=== PATIENT | male | born 1960 | race Asian ===

== ENCOUNTER 2017-03-19 17:24 | Emergency (ER) | payer OTHER ==
[~2017-03-19] VITALS: Ht 185.4 cm; Wt 96.2 kg
[~2017-03-19 17:24] MED LIST: FLUT0.05 NAS; INSU100I2 SC; LEVAQUIN750 MG PO; LISI5TAB10 PO; LORCET PLUS 7.51 TAB PO; NAPROSYN500 MG PO; SMZ/TMP DS1 TAB OR; TRAM50TA PO; TRAMADOL HCL100 MG PO
[2017-03-19 18:22] LABS: PLATELET COUNT 206 K/uL (142-355)
[2017-03-19 18:28] LABS: POTASSIUM 3.7 mmol/L (3.6-5.2); SODIUM 137 mmol/L (136-145)
[2017-03-19 19:15] VITALS: BP 138/79; TEMP 97.2
== END 2017-03-19 19:24 | disposition home or self-care (01) ==
LOC: ED 17:24
DX: R07.89 Other chest pain (principal); M79.602 Pain in left arm; M75.52 Bursitis of left shoulder; I45.19 Other right bundle-branch block
CPT/HCPCS: 36415; 80053; 82550; 84484; 85027; 93005; 96374; 99283; J1885

== ENCOUNTER 2018-05-12 08:33 | Emergency (ER) | payer OTHER ==
[~2018-05-12] VITALS: Ht 185.4 cm; Wt 99.8 kg
[2018-05-12 10:31] VITALS: BP 142/87; TEMP 98.1
== END 2018-05-12 10:40 | disposition home or self-care (01) ==
LOC: ED 08:33
PROC: 0H9QXZZ Drainage of Finger Nail, External Approach (ICD-10-PCS; principal; 2018-05-12)
DX: S60.151A Contusion of right little finger with damage to nail, initial encounter (principal); W23.0XXA Caught, crushed, jammed, or pinched between moving objects, initial encounter; Y92.89 Other specified places as the place of occurrence of the external cause
CPT/HCPCS: 99283; J1885

== ENCOUNTER 2018-08-23 16:50 | Emergency (ER) | payer OTHER ==
[~2018-08-23] VITALS: Ht 185.4 cm; Wt 102.1 kg
[2018-08-23 16:50] VITALS: TEMP 97.8
[2018-08-23 19:55] VITALS: BP 159/85
== END 2018-08-23 19:57 | disposition home or self-care (01) ==
LOC: ED 16:50
PROC: 3E1CX8Z Irrigation of Eye using Irrigating Substance (ICD-10-PCS; principal; 2018-08-23)
DX: T26.62XA Corrosion of cornea and conjunctival sac, left eye, initial encounter (principal); T15.02XA Foreign body in cornea, left eye, initial encounter; T65.891A Toxic effect of other specified substances, accidental (unintentional), initial encounter; Y92.098 Other place in other non-institutional residence as the place of occurrence of the external cause
CPT/HCPCS: 99283; J7040

== ENCOUNTER 2019-06-12 16:15 | Emergency (ER) | payer OTHER ==
[~2019-06-12] VITALS: Ht 185.4 cm; Wt 99.3 kg
[2019-06-12 16:43] LABS: PLATELET COUNT 216 K/uL (142-355)
[2019-06-12 16:51] LABS: PARTIAL THROMBOPLASTIN TIME 23.3 SECONDS (24.5-33.6)
[2019-06-12 17:06] LABS: POTASSIUM 4.1 mmol/L (3.6-5.2); SODIUM 135 mmol/L (136-145)
[2019-06-12 18:16] VITALS: BP 163/83; TEMP 99.7
== END 2019-06-12 18:32 | disposition home or self-care (01) ==
LOC: ED 16:15
PROVIDERS: Student in an Organized Health Care Education/Training Program
DX: M25.512 Pain in left shoulder (principal); M13.812 Other specified arthritis, left shoulder; R07.89 Other chest pain; Z95.0 Presence of cardiac pacemaker; I45.19 Other right bundle-branch block
CPT/HCPCS: 36415; 80048; 83735; 83880; 84484; 85027; 85610; 85730; 93005; 96374; 96375; 99284; J1885; J2270

== ENCOUNTER 2019-06-25 21:19 | Emergency (ER) | payer OTHER ==
[~2019-06-25] VITALS: Ht 185.4 cm; Wt 97.5 kg
[2019-06-25 22:34] LABS: PLATELET COUNT 219 K/uL (142-355)
[2019-06-25 22:45] LABS: POTASSIUM 3.8 mmol/L (3.6-5.2)
[2019-06-25 23:24] VITALS: BP 122/78; TEMP 98.6
== END 2019-06-25 23:24 | disposition home or self-care (01) ==
LOC: ED 21:19
PROVIDERS: Emergency Medicine
DX: M25.531 Pain in right wrist (principal)
CPT/HCPCS: 80053; 84550; 85027; 86430; 96372; 99283; J1885

== ENCOUNTER 2019-11-14 20:48 | Emergency (ER) | payer OTHER ==
[~2019-11-14] VITALS: Ht 185.4 cm; Wt 95.3 kg
[2019-11-14 20:55] VITALS: BP 146/80; TEMP 99.1
== END 2019-11-15 01:04 | disposition home or self-care (01) ==
LOC: ED 20:48
DX: M94.0 Chondrocostal junction syndrome [Tietze] (principal); Z87.828 Personal history of other (healed) physical injury and trauma
CPT/HCPCS: 99282

== ENCOUNTER 2019-11-21 17:23 | Emergency (ER) | payer OTHER ==
[~2019-11-21] VITALS: Ht 185.4 cm; Wt 95.3 kg
[2019-11-21 17:29] VITALS: BP 122/74; TEMP 98.9
== END 2019-11-21 19:30 | disposition home or self-care (01) ==
LOC: ED 17:23
PROC: 0HQLXZZ Repair Left Lower Leg Skin, External Approach (ICD-10-PCS; principal; 2019-11-21)
DX: S81.812A Laceration without foreign body, left lower leg, initial encounter (principal); W18.39XA Other fall on same level, initial encounter; Y92.098 Other place in other non-institutional residence as the place of occurrence of the external cause
CPT/HCPCS: 99282; J2001; J7040

== ENCOUNTER 2020-04-27 12:44 | Outpatient (CLI) | payer OTHER | END 2020-04-27 23:24 | disposition home or self-care (01) | LOC: RAD 12:44 | PROVIDERS: ATTEND Orthopaedic Surgery | DX: M25.512 Pain in left shoulder (principal) ==

== ENCOUNTER 2020-05-13 13:46 | Emergency (ER) | payer OTHER ==
[~2020-05-13] VITALS: Ht 185.4 cm; Wt 95.3 kg
[2020-05-13 16:34] LABS: POTASSIUM 4.1 mmol/L (3.6-5.2)
[2020-05-13 16:57] LABS: PLATELET COUNT 223 K/uL (142-355)
[2020-05-13 17:48] VITALS: BP 146/74; TEMP 98.1
== END 2020-05-13 17:48 | disposition home or self-care (01) ==
LOC: ED 13:46
PROVIDERS: Hospitalist
DX: J06.9 Acute upper respiratory infection, unspecified (principal); Z03.818 Encounter for observation for suspected exposure to other biological agents ruled out
CPT/HCPCS: 80048; 85027; 87635; 87651; 99283; U0003

== ENCOUNTER 2020-08-09 13:51 | Emergency (ER) | payer OTHER ==
[~2020-08-09] VITALS: Ht 185.4 cm; Wt 98.9 kg
[2020-08-09 15:31] VITALS: BP 141/80; TEMP 98.8
== END 2020-08-09 15:31 | disposition home or self-care (01) ==
LOC: ED 13:51
DX: S42.125A Nondisplaced fracture of acromial process, left shoulder, initial encounter for closed fracture (principal); W20.8XXA Other cause of strike by thrown, projected or falling object, initial encounter; Y93.89 Activity, other specified; Y92.89 Other specified places as the place of occurrence of the external cause
CPT/HCPCS: 36415; 81000; 96374; 96375; 99284; J1170; J2270

== ENCOUNTER 2021-09-27 14:15 | Emergency (ER) | payer OTHER ==
[~2021-09-27] VITALS: Ht 185.4 cm; Wt 98.9 kg
[2021-09-27 14:24] VITALS: TEMP 98.6
[2021-09-27 15:09] LABS: PLATELET COUNT 217 K/uL (142-355)
[2021-09-27 15:21] LABS: POTASSIUM 4.4 mmol/L (3.6-5.2)
[2021-09-27 15:35] LABS: PARTIAL THROMBOPLASTIN TIME 21.6 SECONDS (24.5-33.6)
[2021-09-27 17:35] VITALS: BP 147/71
== END 2021-09-27 17:35 | disposition home or self-care (01) ==
LOC: ED 14:15
PROVIDERS: Emergency Medicine
DX: S20.211A Contusion of right front wall of thorax, initial encounter (principal); S80.01XA Contusion of right knee, initial encounter; E11.65 Type 2 diabetes mellitus with hyperglycemia; Z79.4 Long term (current) use of insulin; E11.22 Type 2 diabetes mellitus with diabetic chronic kidney disease; N18.9 Chronic kidney disease, unspecified; Z87.81 Personal history of (healed) traumatic fracture; V85.0XXA Driver of special construction vehicle injured in traffic accident, initial encounter; Y92.89 Other specified places as the place of occurrence of the external cause
CPT/HCPCS: 80053; 82550; 84484; 85027; 85610; 85730; 93005; 96374; 96376; 99284; J2175; J2405; Q9963

== ENCOUNTER 2021-10-07 10:50 | Outpatient (CLI) | payer OTHER | END 2021-10-07 21:17 | disposition home or self-care (01) | LOC: US 10:50 | PROVIDERS: ATTEND Internal Medicine Nephrology | DX: N18.31 Chronic kidney disease, stage 3a (principal) ==

== ENCOUNTER 2022-01-23 09:51 | Outpatient (CLI) | payer OTHER | END 2022-01-23 20:43 | disposition home or self-care (01) | LOC: RAD 09:51 | PROVIDERS: ATTEND Internal Medicine | DX: M25.551 Pain in right hip (principal); M54.59 Other low back pain ==

== ENCOUNTER 2022-08-01 05:41 | Emergency (ER) | payer OTHER ==
[~2022-08-01] VITALS: Ht 185.4 cm; Wt 77.1 kg
[2022-08-01 06:34] LABS: PLATELET COUNT 202 K/uL (142-355)
[2022-08-01 06:40] LABS: POTASSIUM 4.2 mmol/L (3.6-5.2)
== END 2022-08-01 08:14 | disposition home or self-care (01) ==
LOC: ED 05:41
PROVIDERS: Emergency Medicine Emergency Medical Services
DX: R06.6 Hiccough (principal)
CPT/HCPCS: 80053; 84484; 85027; 93005; 96361; 96374; 99284; J3490

== ENCOUNTER 2022-08-30 12:01 | Outpatient (CLI) | payer OTHER | END 2022-08-30 19:08 | disposition home or self-care (01) | LOC: RAD 12:01 | PROVIDERS: ATTEND Internal Medicine | DX: Z01.818 Encounter for other preprocedural examination (principal) | CPT/HCPCS: 93005 ==

== ENCOUNTER 2022-10-26 04:32 | Inpatient (IN) | payer OTHER ==
[~2022-10-26] VITALS: Ht 185.4 cm; Wt 92.6 kg
[2022-10-26 04:35] VITALS: BP 121/79; TEMP 97.8
[2022-10-26 05:34] LABS: PLATELET COUNT 183 K/uL (142-355)
[2022-10-26 05:41] LABS: POTASSIUM 3.1 mmol/L (3.6-5.2)
[2022-10-26 09:20] VITALS: BP 120/61; TEMP 100.3; Ht 185.4 cm; Wt 92.6 kg
[2022-10-26 11:51] VITALS: BP 123/65; TEMP 99.3
[2022-10-26] MEDS ORDERED: OMEP40CA PO (13:04)
[2022-10-26] MEDS ORDERED: NEURONTIN800 MG PO (13:04)
[2022-10-26] MEDS ORDERED: CHLO25TA12 PO (13:06)
[2022-10-26] MEDS ORDERED: VITAMIN D35000 UNI6 PO (13:07)
[2022-10-26] MEDS ORDERED: LEVEMIR FL100 UNIT/M SC (13:09)
[2022-10-26] MEDS ORDERED: MOUNJARO 10 MG/0.5 ML SC (13:13)
[2022-10-26 16:00] VITALS: BP 137/65; TEMP 99
[2022-10-26 20:00] VITALS: BP 139/66; TEMP 101.8
[2022-10-27] VITALS (7 sets, daily range): BP systolic 113–150; BP diastolic 62–86; TEMP 97.3–102.6
[2022-10-27 07:10] LABS: PLATELET COUNT 152 K/uL (142-355)
[2022-10-28] VITALS (9 sets, daily range): BP systolic 115–186; BP diastolic 59–84; TEMP 98–103.3
[2022-10-28 05:21] LABS: PLATELET COUNT 173 K/uL (142-355)
[2022-10-28 05:41] LABS: POTASSIUM 4.1 mmol/L (3.6-5.2)
[2022-10-29] VITALS (7 sets, daily range): BP systolic 97–202; BP diastolic 56–81; TEMP 97.8–103.1
[2022-10-29 05:24] LABS: PLATELET COUNT 169 K/uL (142-355)
[2022-10-29 05:29] LABS: POTASSIUM 3.7 mmol/L (3.6-5.2)
[2022-10-30 03:36] VITALS: BP 172/81; TEMP 102.3
[2022-10-30 08:00] VITALS: BP 111/60; TEMP 102.1
[2022-10-30 11:05] LABS: PLATELET COUNT 211 K/uL (142-355)
[2022-10-30 11:08] LABS: POTASSIUM 3.7 mmol/L (3.6-5.2)
[2022-10-30 12:00] VITALS: BP 161/77; TEMP 97.6
[2022-10-30 16:00] VITALS: BP 177/84; TEMP 101.5
[2022-10-30 20:00] VITALS: BP 106/63; TEMP 99.1
[2022-10-31] VITALS: BP 136/70; TEMP 98.1
[2022-10-31 04:00] VITALS: BP 130/70; TEMP 97.9
[2022-10-31 08:00] VITALS: BP 166/80; TEMP 98.7
[2022-10-31 12:00] VITALS: BP 157/89; TEMP 99.9
[2022-10-31 16:00] VITALS: BP 144/77; TEMP 102.4
[2022-10-31 20:29] VITALS: BP 116/62; TEMP 99.1
[2022-11-01] VITALS (7 sets, daily range): BP systolic 118–190; BP diastolic 62–85; TEMP 98.1–99.7
[2022-11-01 10:29] LABS: PLATELET COUNT 324 K/uL (142-355)
[2022-11-01 10:42] LABS: POTASSIUM 3.7 mmol/L (3.6-5.2)
[2022-11-02 03:38] VITALS: BP 154/77; TEMP 97.2
[2022-11-02 05:54] LABS: PLATELET COUNT 384 K/uL (142-355)
[2022-11-02 06:25] LABS: POTASSIUM 3.7 mmol/L (3.6-5.2)
[2022-11-02 08:00] VITALS: BP 159/74; TEMP 97.3
[2022-11-02 12:00] VITALS: BP 148/68; TEMP 98.7
== END 2022-11-02 13:28 | disposition home or self-care (01) | DRG 195 ==
LOC: ED 04:32 → MED/SURG 06:22
PROVIDERS: ADMIT Family Medicine; ATTEND Family Medicine
DX: J18.9 Pneumonia, unspecified organism (principal); R91.8 Other nonspecific abnormal finding of lung field; R06.6 Hiccough; E11.65 Type 2 diabetes mellitus with hyperglycemia; N18.32 Chronic kidney disease, stage 3b; R11.2 Nausea with vomiting, unspecified; E55.9 Vitamin D deficiency, unspecified; D64.89 Other specified anemias; E87.8 Other disorders of electrolyte and fluid balance, not elsewhere classified; R53.83 Other fatigue; S39.011A Strain of muscle, fascia and tendon of abdomen, initial encounter; R53.81 Other malaise; I12.9 Hypertensive chronic kidney disease with stage 1 through stage 4 chronic kidney disease, or unspecified chronic kidney disease; Y92.89 Other specified places as the place of occurrence of the external cause; Z87.891 Personal history of nicotine dependence; F41.8 Other specified anxiety disorders; E86.0 Dehydration
CPT/HCPCS: 36415; 80053; 80307; 81000; 81002; 82150; 82550; 82948; 83690; 83735; 83880; 84100; 85027; 85379; 86140; 87040; 87502; 87635; 93005; 94664; 94667; 94668; 94760; 96361; 96365; 96366; 96367; 96372; 96374; 96375; 96376; 99221; 99284; G0378; J0132; J1650; J2270; J2405; J2543; J2765; J3230; J3360; J3480; J3490; Q9963; U0003